=== PATIENT | female | born 1950 | race Caucasian/White ===

== ENCOUNTER → 2017-09-14 | Outpatient (CLI) | payer MEDICARE, BC | LOC: M WHC 10:19 | DX: Z12.31 Encounter for screening mammogram for malignant neoplasm of breast (principal); Z78.0 Asymptomatic menopausal state; Z98.890 Other specified postprocedural states; Z92.0 Personal history of contraception; Z98.82 Breast implant status | CPT/HCPCS: 77067 ==

== ENCOUNTER → 2018-04-14 | Outpatient (CLI) | payer MEDICARE, BC | LOC: M WHC 10:29 | DX: M85.89 Other specified disorders of bone density and structure, multiple sites (principal) | CPT/HCPCS: 77080 ==

== ENCOUNTER → 2020-04-14 | Outpatient (CLI) | payer MEDICARE, BC ==
--- NOTE | 2020-04-14 13:08 | REPMRS ---
Patient History The patient states she had a clinical breast exam in 2019. Family history of pancreatic cancer at age 89 in mother, prostate cancer in maternal uncle. Reconstructions of both breasts, 2017. Retro-pectoral implants in both breasts, 2006. Benign cyst aspiration of the right breast. Took hormonal contraceptives for 5 months. Implants removed in 2017 3D TOMOSYNTHESIS WAS PERFORMED. The [facility] lifetime risk for breast cancer is 5.1%. Volpara density c. Digital Woman Screen Mammo: April 14, 2020 - Exam #: [id number] Bilateral CC and MLO view(s) were taken. Technologist: Dolly Souza, Technologist Prior study comparison: September 14, 2017, digital woman screen mammo performed at [facility]. April 12, 2016, digital woman screen mammo performed at [facility]. FINDINGS: The breast tissue is heterogeneously dense. This may lower the sensitivity of mammography. There has been no change in the appearance of the mammogram from the prior studies. There is a moderate amount of residual fibroglandular tissue which is fairly symmetric. There is no interval development of dominant mass, areas of architectural distortion, or clustered microcalcification typical of malignancy. Assessment: BI-RADS/ACR category 1 mammogram. Negative Mammogram. Recommendation Routine screening mammogram in 1 year (for women over age 40). This mammogram was interpreted with the aid of an FDA-approved computer-aided dectection system. Electronically Signed By: Shant Troncoso MD 04/14/20 [id number]
== END ==
LOC: M WHC 11:47
PROVIDERS: ATTEND Obstetrics & Gynecology
DX: Z12.31 Encounter for screening mammogram for malignant neoplasm of breast (principal); Z80.0 Family history of malignant neoplasm of digestive organs

== ENCOUNTER → 2020-04-15 | Outpatient (CLI) | payer MEDICARE, BC ==
--- NOTE | 2020-04-22 13:19 | DEXA ---
AP SPINE L1 - L4 0.969 -1.8 -0.2 LT FEMUR TOTAL 0.787 -1.8 -0.3 LT NECK 0.792 -1.8 -0.1 RT FEMUR TOTAL 0.766 -1.9 -0.5 RT NECK 0.799 -1.7 -0.1 TOTAL BODY TOTAL OTHER COMMENTS: There is low bone density of the spine and hips. The increased density of the spine does not represent a significant change. The increased density of the left hip does not represent significant change. The decreased density of the right hip does not represent significant change. The density of the spine has decreased 4.5% since the initial exam on 12/03/1999. The increased 0.5% since the most recent exam on 04/14/2018. The density of the left hip has decreased 8.2% since the initial exam on 12/03/1999. The density of the left hip has increased 0.1% since the most recent exam on 04/14/2018. The density of the right hip has decreased 6.1% since the initial exam on 12/03/1999. The density of the right hip has decreased 0.8% since the most recent exam on 04/14/2018. FOLLOW-UP: Recommendation for the next bone density exam: 2 years. SOFI
== END ==
LOC: M WHC 12:48
PROVIDERS: ATTEND Nurse Practitioner Family
DX: M85.89 Other specified disorders of bone density and structure, multiple sites (principal)

== ENCOUNTER → 2021-04-30 | Outpatient (CLI) | payer MEDICARE, BC ==
--- NOTE | 2021-04-30 10:18 | REPMRS ---
Patient History The patient states she had a clinical breast exam in March 2021. Family history of pancreatic cancer at age 89 in mother, prostate cancer in maternal uncle. Explants from both breasts, 2017. Reconstructions of both breasts, 2017. Retro-pectoral implants in both breasts, 2006. Benign cyst aspiration of the right breast. Took hormonal contraceptives for 5 months. Tomosynthesis is performed. Volpara breast density is c. [facility] lifetime risk of breast cancer 4.8%. Pfizer vaccine 08/11/20 left arm. 09/01/20 left arm. Patient states no breast complaints today. Patient has signed MRS History Sheet. Digital Woman Screen Mammo: April 30, 2021 - Exam #: [id number] Bilateral CC and MLO view(s) were taken. Technologist: RT Annel Prior study comparison: April 14, 2020, bilateral digital woman screen mammo performed at [facility]. September 14, 2017, digital woman screen mammo performed at [facility]. FINDINGS: The breast tissue is heterogeneously dense. This may lower the sensitivity of mammography. There has been no change in the appearance of the mammogram from the prior studies. There is a moderate amount of residual fibroglandular tissue which is fairly symmetric. There is no interval development of dominant mass, areas of architectural distortion, or clustered microcalcification typical of malignancy. Assessment: BI-RADS/ACR category 1 mammogram. Negative Mammogram. Recommendation Routine screening mammogram in 1 year (for women over age 40). This mammogram was interpreted with the aid of an FDA-approved computer-aided dectection system. Electronically Signed By: Shant Troncoso MD 04/30/21 [id number]
== END ==
LOC: M WHC 08:30
PROVIDERS: ATTEND Obstetrics & Gynecology
DX: Z12.31 Encounter for screening mammogram for malignant neoplasm of breast (principal)

== ENCOUNTER → 2022-04-13 | Outpatient (CLI) | payer MEDICARE, BC | LOC: M WHC 12:51 | PROVIDERS: ATTEND Internal Medicine Endocrinology, Diabetes & Metabolism | DX: R94.6 Abnormal results of thyroid function studies (principal); M85.89 Other specified disorders of bone density and structure, multiple sites; E55.9 Vitamin D deficiency, unspecified ==

== ENCOUNTER → 2022-12-14 | Outpatient (CLI) | payer MEDICARE, BC | LOC: M WHC 08:19 | PROVIDERS: ATTEND Nurse Practitioner Family | DX: Z01.419 Encounter for gynecological examination (general) (routine) without abnormal findings (principal); Z12.31 Encounter for screening mammogram for malignant neoplasm of breast; Z95.2 Presence of prosthetic heart valve | CPT/HCPCS: 77063; 77067; G0101 ==

== ENCOUNTER → 2023-08-16 | Outpatient (CLI) | payer MEDICARE, BC | LOC: M RAD 09:29 | PROVIDERS: ATTEND Nurse Practitioner Family | DX: K81.0 Acute cholecystitis (principal) ==

== ENCOUNTER → 2024-04-16 | Outpatient (CLI) | payer MEDICARE, BC | LOC: M WHC 08:32 | PROVIDERS: ATTEND Nurse Practitioner Family | DX: Z12.31 Encounter for screening mammogram for malignant neoplasm of breast (principal); M81.0 Age-related osteoporosis without current pathological fracture ==

== ENCOUNTER → 2025-04-17 | Outpatient (CLI) | payer MEDICARE, BC | LOC: M WHC 08:52 | PROVIDERS: ATTEND Nurse Practitioner Family | DX: Z12.31 Encounter for screening mammogram for malignant neoplasm of breast (principal) ==